=== PATIENT | male | born 1980 | race Two or more races ===

== ENCOUNTER 2017-03-29 08:42 | Emergency (ER) | payer OTHER ==
[~2017-03-29] VITALS: Ht 182.9 cm; Wt 65.8 kg
[2017-03-29 08:45] VITALS: BP 131/70
[2017-03-29] MEDS ORDERED: FLUORESCEIN SOD 1 MG TEST STRIP OP ONE (11:00)
[2017-03-29] MEDS ORDERED: TETRACAINE HCL 0.5% OPTH(EYE) SOLN 4ML EACHEYE ONE (11:00)
== END 2017-03-29 11:30 | disposition home or self-care (01) ==
LOC: ER 08:42
DX: S05.02XA Injury of conjunctiva and corneal abrasion without foreign body, left eye, initial encounter (principal); H60.5 Acute noninfective otitis externa; Z77.098 Contact with and (suspected) exposure to other hazardous, chiefly nonmedicinal, chemicals; W22.8XXA Striking against or struck by other objects, initial encounter; Y93.89 Activity, other specified; Y92.89 Other specified places as the place of occurrence of the external cause; Y99.8 Other external cause status

== ENCOUNTER 2023-04-17 18:29 | Emergency (ER) | payer OTHER ==
[~2023-04-17] VITALS: Ht 182.9 cm; Wt 65.0 kg
[2023-04-17] MEDS ORDERED: FLUORESCEIN SOD OPTH TEST STRIP RIGHTEYE ONE (21:15)
[2023-04-17] MEDS ORDERED: TETRACAINE HCL 0.5% OPTH(EYE) SOLN 4ML RIGHTEYE ONE (21:15)
[2023-04-17] MEDS ORDERED: ERY05OO OP (21:33)
[2023-04-17 22:05] VITALS: BP 125/67; PULSE 62; RESP 18; TEMP 97.9; O2SAT 96
== END 2023-04-17 22:04 | disposition home or self-care (01) ==
LOC: ER 18:29
DX: S05.01XA Injury of conjunctiva and corneal abrasion without foreign body, right eye, initial encounter (principal); X58.XXXA Exposure to other specified factors, initial encounter; Y93.89 Activity, other specified; Y92.89 Other specified places as the place of occurrence of the external cause; Y99.8 Other external cause status